=== PATIENT | female | born 1945 | race Caucasian/White ===

== ENCOUNTER 2022-03-07 21:06 | Inpatient (IN) ==
[2022-03-07] MEDS ORDERED: Isovue-370 500 ML BOTTLE IVP ONE (21:18)
[2022-03-07 21:50] LABS: Hematocrit 33.5 % (35.3-44.9); Hemoglobin 11.3 g/dL (11.5-15.4); Mean Corpuscular HGB Conc 33.7 g/dL (31.6-35.5); Mean Corpuscular Hemoglobin 31.7 pg (28.0-33.3); Mean Corpuscular Volume 94.1 fL (83.0-100.0); Mean Platelet Volume 8.5 fL (9.4-12.4); Platelet Count 371 K/mcL (140-400); Red Blood Count 3.56 M/mcL (3.82-4.97); White Blood Count 11.6 K/mcL (4.3-11.1)
[2022-03-07] MEDS ORDERED: *HR* LORazepam 2 MG/ML VIAL IVP ONE (21:52)
[2022-03-07 21:58] LABS: Prothrombin Time 11.1 Seconds (9.4-12.1)
[2022-03-07 22:00] LABS: Activated Partial Thrombo Time 28.3 Seconds (26.0-36.0)
[2022-03-07 22:15] LABS: BUN/Creatinine Ratio 19 (6-26); Blood Urea Nitrogen 30 mg/dL (8-23); Calcium 9.2 mg/dL (8.6-10.3); Carbon Dioxide 18 mEq/L (23-29); Chloride 105 mEq/L (98-107); Glucose 122 mg/dL (70-105); Osmolality,Calculated 287 (280-300); Potassium 4.8 mEq/L (3.5-5.1); Sodium 135 mEq/L (136-145); eGFR For African Americans 40 (> 60); eGFR For Non-African Americans 33 (> 60)
[2022-03-07 22:16] LABS: Troponin I < 0.03 ng/mL (< 0.04)
[2022-03-07 22:42] LABS: Bilirubin,Urine Negative (Negative); Blood,Urine Negative (Negative); Clarity,Urine Clear (Clear); Color,Urine Light-Yellow (Yellow); Glucose,Urine (UA) Normal (Normal); Ketones,Urine Negative (Negative); Leukocyte Esterase,Urine Negative (Negative); Nitrite,Urine Negative (Negative); PH,Urine 5.5 pH Units (5.0-8.0); Protein,Urine Trace mg/dL (Neg-Trace); Urobilinogen,Urine Normal (Normal)
[2022-03-07] MEDS ORDERED: Azithromycin 500 MG in 0.9 % Sodium Chloride 250 ML IVPB ONE (23:42)
[2022-03-07] MEDS ORDERED: cefTRIAXone 1,000 MG in 0.9 % Sodium Chloride Mini Bag 100 ML IVPB ONE (23:42)
[2022-03-08] MEDS ORDERED: Naloxone 0.4 MG/ML INJ IVP PRN (00:21)
[2022-03-08] MEDS ORDERED: Ondansetron ODT 4 MG TAB.RAPDIS SL PRN (00:21)
[2022-03-08] MEDS ORDERED: Melatonin 3 MG TABLET PO PRN (00:21)
[2022-03-08 01:16] LABS: Influenza A PCR Negative (Negative); Influenza B PCR Negative (Negative); Resp. Syncytial Virus PCR Negative (Negative)
[2022-03-08 01:20] LABS: SARS-CoV-2 by PCR (In House) Negative (Negative)
[2022-03-08] MEDS ORDERED: 0.9 % Sodium Chloride 1,000 ML IVC SCH ×2 (02:15→07:30)
[2022-03-08 03:22] LABS: Basophils # 0.1 K/mcL (0.0-0.2); Basophils % 0.5 %; Eosinophils # 0.4 K/mcL (0.0-0.6); Eosinophils % 4.2 %; Hematocrit 30.9 % (35.3-44.9); Hemoglobin 9.9 g/dL (11.5-15.4); Immature Granulocytes % 0.4 % (0-4); Lymphocytes # 2.3 K/mcL (0.6-4.6); Lymphocytes % 22.7 %; Mean Corpuscular Hemoglobin 30.4 pg (28.0-33.3); Mean Corpuscular Volume 94.8 fL (83.0-100.0); Mean Platelet Volume 8.6 fL (9.4-12.4); Monocytes # 0.5 K/mcL (0.0-1.3); Monocytes % 5.3 %; Neutrophils # 6.7 K/mcL (1.6-8.9); Platelet Count 332 K/mcL (140-400); Red Blood Count 3.26 M/mcL (3.82-4.97); Red Cell Distribution Width 13.1 % (11.5-14.5); Segmented Neutrophils % 66.9 %
[2022-03-08 03:45] LABS: Calcium 8.9 mg/dL (8.6-10.3)
[2022-03-08] MEDS: Levothyroxine 25 MCG TABLET PO SCH (06:18)
[2022-03-08] MEDS: Aspirin 81 MG TAB.CHEW PO SCH (08:39)
[2022-03-08 12:09] LABS: Sodium, Urine 71.3 mEq/L
[2022-03-08] MEDS ORDERED: *HR* LORazepam 2 MG/ML VIAL IVP ONE (12:20)
[2022-03-08] MEDS ORDERED: QUEtiapine Fumarate 25 MG TABLET PO PRN (18:13)
[2022-03-08] MEDS ORDERED: Acetaminophen 325 MG TABLET PO ONE (20:25)
[2022-03-09 02:53] LABS: Basophils # 0.1 K/mcL (0.0-0.2); Basophils % 0.8 %; Eosinophils # 0.2 K/mcL (0.0-0.6); Eosinophils % 2.8 %; Hematocrit 28.8 % (35.3-44.9); Hemoglobin 9.6 g/dL (11.5-15.4); Immature Granulocytes % 0.3 % (0-4); Lymphocytes % 22.6 %; Mean Corpuscular HGB Conc 33.3 g/dL (31.6-35.5); Mean Corpuscular Hemoglobin 31.4 pg (28.0-33.3); Mean Corpuscular Volume 94.1 fL (83.0-100.0); Mean Platelet Volume 8.8 fL (9.4-12.4); Monocytes # 0.5 K/mcL (0.0-1.3); Monocytes % 5.9 %; Neutrophils # 5.9 K/mcL (1.6-8.9); Platelet Count 295 K/mcL (140-400); Red Blood Count 3.06 M/mcL (3.82-4.97); Red Cell Distribution Width 13.2 % (11.5-14.5); Segmented Neutrophils % 67.6 %; White Blood Count 8.7 K/mcL (4.3-11.1)
[2022-03-09 03:05] LABS: Albumin 3.8 g/dL (3.5-5.7); Albumin/Globulin Ratio 1.4 (1.1-2.2); Bilirubin,Total 0.4 mg/dL (0.3-1.0); Calcium 8.5 mg/dL (8.6-10.3); Globulin 2.8 g/dL (2.4-3.5); Potassium 4.5 mEq/L (3.5-5.1); Total Protein 6.6 g/dL (6.4-8.9)
[2022-03-09] MEDS: Levothyroxine 25 MCG TABLET PO SCH (05:11)
[2022-03-09] MEDS: Aspirin 81 MG TAB.CHEW PO SCH (08:25)
[2022-03-09] MEDS: Melatonin 3 MG TABLET PO SCH (08:25)
[2022-03-09] MEDS: Cyanocobalamin (B-12) 1,000 MCG TABLET PO SCH (08:25)
[2022-03-09] MEDS: Famotidine 20 MG TABLET PO SCH (08:26)
[2022-03-09] MEDS: Loratadine 10 MG TABLET PO SCH (08:26)
[2022-03-09] MEDS ORDERED: *HR* LORazepam 2 MG/ML VIAL IVP ONE (10:01)
[2022-03-10] MEDS ORDERED: *HR* Enoxaparin 40 MG/0.4 ML SYRINGE SQ SCH (06:00)
[2022-03-10] MEDS: Levothyroxine 25 MCG TABLET PO SCH (06:30)
[2022-03-10 06:35] LABS: Basophils # 0.1 K/mcL (0.0-0.2); Basophils % 1.1 %; Eosinophils # 0.3 K/mcL (0.0-0.6); Eosinophils % 4.3 %; Hemoglobin 9.6 g/dL (11.5-15.4); Immature Granulocytes % 0.4 % (0-4); Lymphocytes # 2.3 K/mcL (0.6-4.6); Lymphocytes % 30.3 %; Mean Corpuscular HGB Conc 33.1 g/dL (31.6-35.5); Mean Corpuscular Hemoglobin 30.6 pg (28.0-33.3); Mean Corpuscular Volume 92.4 fL (83.0-100.0); Mean Platelet Volume 8.5 fL (9.4-12.4); Monocytes # 0.5 K/mcL (0.0-1.3); Monocytes % 6.3 %; Neutrophils # 4.4 K/mcL (1.6-8.9); Platelet Count 310 K/mcL (140-400); Red Blood Count 3.14 M/mcL (3.82-4.97); Segmented Neutrophils % 57.6 %; White Blood Count 7.6 K/mcL (4.3-11.1)
[2022-03-10 06:51] LABS: Albumin 3.9 g/dL (3.5-5.7); Albumin/Globulin Ratio 1.3 (1.1-2.2); Bilirubin,Total 0.4 mg/dL (0.3-1.0); Calcium 8.6 mg/dL (8.6-10.3); Globulin 2.9 g/dL (2.4-3.5); Magnesium 2.2 mg/dL (1.6-2.6); Phosphorous 3.2 mg/dL (2.7-4.5); Potassium 4.1 mEq/L (3.5-5.1); Total Protein 6.8 g/dL (6.4-8.9)
[2022-03-10 07:03] LABS: Thyroid Stimulating Hormone 2.406 mcIU/mL (0.340-5.600)
[2022-03-10] MEDS: Loratadine 10 MG TABLET PO SCH (09:19)
[2022-03-10] MEDS: Melatonin 3 MG TABLET PO SCH (09:20)
[2022-03-10] MEDS: Aspirin 81 MG TAB.CHEW PO SCH (09:20)
[2022-03-10] MEDS: Famotidine 20 MG TABLET PO SCH (09:20)
[2022-03-10] MEDS: Cyanocobalamin (B-12) 1,000 MCG TABLET PO SCH (09:20)
[2022-03-10 10:59] VITALS: BP 108/66; PULSE 89; TEMP 98.3; O2SAT 93
== END 2022-03-10 12:47 | disposition home health service (06) | DRG 69 ==
LOC: EMEROOARM 21:06 → 3ANU 21:06 → SUATTDRO 03-08 00:18 → 3ANU 03-08 01:01
PROVIDERS: ADMIT Internal Medicine; ATTEND Internal Medicine

== ENCOUNTER 2022-03-24 20:43 | Inpatient (IN) ==
[2022-03-24] MEDS ORDERED: 0.9 % Sodium Chloride 1,000 ML IVC ONE ×2 (20:50→22:35)
[2022-03-24 21:16] LABS: Basophils # 0.1 K/mcL (0.0-0.2); Basophils % 0.3 %; Eosinophils # 0.4 K/mcL (0.0-0.6); Eosinophils % 1.6 %; Hematocrit 20.3 % (35.3-44.9); Hemoglobin 6.4 g/dL (11.5-15.4); Immature Granulocytes % 1.6 % (0-4); Lymphocytes # 1.7 K/mcL (0.6-4.6); Lymphocytes % 6.6 %; Mean Corpuscular HGB Conc 31.5 g/dL (31.6-35.5); Mean Corpuscular Hemoglobin 29.9 pg (28.0-33.3); Mean Corpuscular Volume 94.9 fL (83.0-100.0); Monocytes # 1.1 K/mcL (0.0-1.3); Monocytes % 4.4 %; Nucleated Red Blood Cells 0.1 /100 WBC (0); Platelet Count 579 K/mcL (140-400); Red Blood Count 2.14 M/mcL (3.82-4.97); Red Cell Distribution Width 13.4 % (11.5-14.5); Segmented Neutrophils % 85.5 %; White Blood Count 25.7 K/mcL (4.3-11.1)
[2022-03-24 21:36] LABS: Alanine Aminotransferase 14 Units/L (7-52); Albumin 3.5 g/dL (3.5-5.7); Albumin/Globulin Ratio 1.2 (1.1-2.2); Alkaline Phosphatase 128 Units/L (34-104); Aspartate Amino Transferase 22 Units/L (13-39); BUN/Creatinine Ratio 19 (6-26); Bilirubin,Direct 0.1 mg/dL (0.0-0.2); Bilirubin,Indirect 0.1 mg/dL (0.0-1.0); Bilirubin,Total 0.2 mg/dL (0.3-1.0); Blood Urea Nitrogen 28 mg/dL (8-23); Calcium 8.3 mg/dL (8.6-10.3); Carbon Dioxide 21 mEq/L (23-29); Chloride 105 mEq/L (98-107); Creatine Kinase 58 Units/L (30-223); Ethanol < 10 mg/dL (Less than 10); Glucose 144 mg/dL (70-105); Osmolality,Calculated 290 (280-300); Potassium 4.8 mEq/L (3.5-5.1); Sodium 136 mEq/L (136-145); Total Protein 6.5 g/dL (6.4-8.9); Troponin I < 0.03 ng/mL (< 0.04); eGFR For African Americans 42 (> 60); eGFR For Non-African Americans 34 (> 60)
[2022-03-24 21:38] LABS: Platelet Estimate Increased (Normal)
[2022-03-24 21:39] LABS: Hypochromasia Present (Not Present)
[2022-03-24] MEDS ORDERED: cefTRIAXone 1,000 MG in Water for inj. (sterile) 10 ML IVP ONE (22:00)
[2022-03-24] MEDS ORDERED: Azithromycin 250 MG TABLET PO ONE (22:00)
[2022-03-24] MEDS ORDERED: Acetaminophen 325 MG TABLET PO ONE (22:04)
[2022-03-24 22:17] LABS: Bilirubin,Urine Negative (Negative); Blood,Urine Negative (Negative); Clarity,Urine Turbid (Clear); Color,Urine Yellow (Yellow); Glucose,Urine (UA) Normal (Normal); Ketones,Urine Trace mg/dL (Negative); Leukocyte Esterase,Urine Moderate (Negative); Mucus,Urine Few per lpf (None-Few); Nitrite,Urine Negative (Negative); Protein,Urine 30 mg/dL (Neg-Trace); Specific Gravity,Urine 1.024 (1.010-1.025); Squamous Epithelial Cell,Urine Moderate per hpf (None-Few); Transitional Epi Cells,Urine Few per hpf (None-Few); Urobilinogen,Urine Normal (Normal); WBC,Urine 15-30 per hpf (0-3)
[2022-03-24 22:23] LABS: Amphetamine Screen,Urine Negative ng/mL (Cutoff=1000); Barbiturate Screen,Urine Negative ng/mL (Cutoff=200); Benzodiazepines Screen,Urine Negative ng/mL (Cutoff=200); Cannabinoid Screen,Urine Negative ng/mL (Cutoff = 50); Cocaine Screen,Urine Negative ng/mL (Cutoff= 300); Opiate Screen,Urine Negative ng/mL (Cutoff=300); Phencyclidine Screen,Urine Negative ng/mL (Cutoff=25)
[2022-03-25 00:32] LABS: Influenza A PCR Negative (Negative); Influenza B PCR Negative (Negative); Resp. Syncytial Virus PCR Negative (Negative)
[2022-03-25 00:34] LABS: SARS-CoV-2 by PCR (In House) Negative (Negative)
[2022-03-25] MEDS ORDERED: Ondansetron 4 MG/2 ML VIAL IVP PRN (01:20)
[2022-03-25] MEDS ORDERED: Naloxone 0.4 MG/ML INJ IVP PRN (01:20)
[2022-03-25] MEDS ORDERED: 0.9 % Sodium Chloride 250 ML ONE (01:48)
[2022-03-25] MEDS ORDERED: Pantoprazole 40 MG VIAL IVP SCH (02:30)
[2022-03-25] MEDS: Pantoprazole 40 MG VIAL IVP SCH ×2 (05:08→14:44)
[2022-03-25] MEDS: 0.9 % Sodium Chloride 1,000 ML IVC SCH ×2 (05:09→12:53)
[2022-03-25 09:55] LABS: Basophils % 0.2 %; Eosinophils # 0.3 K/mcL (0.0-0.6); Eosinophils % 1.7 %; Hematocrit 23.2 % (35.3-44.9); Hemoglobin 7.5 g/dL (11.5-15.4); Immature Granulocytes % 1.5 % (0-4); Lymphocytes # 2.1 K/mcL (0.6-4.6); Lymphocytes % 12.8 %; Mean Corpuscular HGB Conc 32.3 g/dL (31.6-35.5); Mean Corpuscular Hemoglobin 30.1 pg (28.0-33.3); Mean Corpuscular Volume 93.2 fL (83.0-100.0); Monocytes # 0.7 K/mcL (0.0-1.3); Monocytes % 4.4 %; Neutrophils # 12.9 K/mcL (1.6-8.9); Platelet Count 504 K/mcL (140-400); Red Blood Count 2.49 M/mcL (3.82-4.97); Red Cell Distribution Width 14.4 % (11.5-14.5); Segmented Neutrophils % 79.4 %; White Blood Count 16.2 K/mcL (4.3-11.1)
[2022-03-25 10:00] LABS: INR 1.1; Prothrombin Time 12.6 Seconds (9.4-12.1)
[2022-03-25 10:09] LABS: Albumin 3.2 g/dL (3.5-5.7); Bilirubin,Total 0.3 mg/dL (0.3-1.0); Calcium 7.7 mg/dL (8.6-10.3); Globulin 3.1 g/dL (2.4-3.5); Magnesium 2.2 mg/dL (1.6-2.6); Phosphorous 3.1 mg/dL (2.7-4.5); Potassium 4.9 mEq/L (3.5-5.1); Total Protein 6.3 g/dL (6.4-8.9)
[2022-03-25 10:34] LABS: Folate 18.3 ng/mL (3.0-16.0)
[2022-03-25] MEDS: cefTRIAXone 2,000 MG in 0.9 % Sodium Chloride 20 ML IVP SCH (10:58)
[2022-03-25 11:03] LABS: Vitamin B12 > 1500 pg/mL (250-1100)
[2022-03-25] MEDS ORDERED: ALPRAZolam 0.5 MG TABLET PO PRN (15:32)
[2022-03-25] MEDS: *HR* Heparin 5,000 UNIT/ML VIAL SQ SCH (16:49)
[2022-03-25] MEDS ORDERED: cefTRIAXone 1,000 MG in 0.9 % Sodium Chloride 10 ML IVP ONE (21:00)
[2022-03-25] MEDS: Melatonin 3 MG TABLET PO SCH (21:18)
[2022-03-26 03:13] LABS: Hematocrit 23.6 % (35.3-44.9); Hemoglobin 7.4 g/dL (11.5-15.4); Mean Corpuscular HGB Conc 31.4 g/dL (31.6-35.5); Mean Corpuscular Hemoglobin 29.4 pg (28.0-33.3); Mean Corpuscular Volume 93.7 fL (83.0-100.0); Mean Platelet Volume 8.1 fL (9.4-12.4); Platelet Count 505 K/mcL (140-400); Red Blood Count 2.52 M/mcL (3.82-4.97); Red Cell Distribution Width 14.9 % (11.5-14.5); White Blood Count 13.9 K/mcL (4.3-11.1)
[2022-03-26 03:32] LABS: Calcium 7.6 mg/dL (8.6-10.3); Potassium 4.7 mEq/L (3.5-5.1)
[2022-03-26] MEDS: Pantoprazole 40 MG VIAL IVP SCH ×2 (03:42→13:57)
[2022-03-26] MEDS: Levothyroxine 25 MCG TABLET PO SCH (06:47)
[2022-03-26] MEDS: *HR* Heparin 5,000 UNIT/ML VIAL SQ SCH ×2 (06:47→17:36)
[2022-03-26] MEDS ORDERED: Iron Sucrose Complex 400 MG in 0.9 % Sodium Chloride 250 ML IVPB ONE (07:45)
[2022-03-26] MEDS: Aspirin Enteric Coated 325 MG Tablet PO SCH (08:54)
[2022-03-26] MEDS: Loratadine 10 MG TABLET PO SCH (08:55)
[2022-03-26] MEDS: Cyanocobalamin (B-12) 1,000 MCG TABLET PO SCH (08:55)
[2022-03-26] MEDS: cefTRIAXone 2,000 MG in 0.9 % Sodium Chloride 20 ML IVP SCH (08:55)
[2022-03-26] MEDS ORDERED: Famotidine 20 MG TABLET PO SCH (09:00)
[2022-03-26] MEDS: Melatonin 3 MG TABLET PO SCH (19:41)
[2022-03-27 02:28] LABS: Hematocrit 23.1 % (35.3-44.9); Hemoglobin 7.4 g/dL (11.5-15.4); Mean Corpuscular Hemoglobin 30.3 pg (28.0-33.3); Mean Corpuscular Volume 94.7 fL (83.0-100.0); Platelet Count 499 K/mcL (140-400); Red Blood Count 2.44 M/mcL (3.82-4.97); Red Cell Distribution Width 14.5 % (11.5-14.5); White Blood Count 14.7 K/mcL (4.3-11.1)
[2022-03-27 02:54] LABS: Calcium 7.3 mg/dL (8.6-10.3); Potassium 4.3 mEq/L (3.5-5.1)
[2022-03-27] MEDS: *HR* Heparin 5,000 UNIT/ML VIAL SQ SCH ×2 (05:22→19:00)
[2022-03-27] MEDS: Levothyroxine 25 MCG TABLET PO SCH (05:22)
[2022-03-27] MEDS: Aspirin Enteric Coated 325 MG Tablet PO SCH (07:37)
[2022-03-27] MEDS: Cefdinir 300 MG CAPSULE PO SCH ×2 (07:37→19:56)
[2022-03-27] MEDS: Famotidine 20 MG TABLET PO SCH (07:37)
[2022-03-27] MEDS: Cyanocobalamin (B-12) 1,000 MCG TABLET PO SCH (07:37)
[2022-03-27] MEDS: Loratadine 10 MG TABLET PO SCH (07:37)
[2022-03-27] MEDS: Melatonin 3 MG TABLET PO SCH (19:57)
[2022-03-28] MEDS: *HR* Heparin 5,000 UNIT/ML VIAL SQ SCH ×2 (05:48→17:28)
[2022-03-28] MEDS: Levothyroxine 25 MCG TABLET PO SCH (05:48)
[2022-03-28] MEDS: Cefdinir 300 MG CAPSULE PO SCH ×2 (07:59→19:55)
[2022-03-28] MEDS: Aspirin Enteric Coated 325 MG Tablet PO SCH (07:59)
[2022-03-28] MEDS: Cyanocobalamin (B-12) 1,000 MCG TABLET PO SCH (07:59)
[2022-03-28] MEDS: Famotidine 20 MG TABLET PO SCH (07:59)
[2022-03-28] MEDS: Loratadine 10 MG TABLET PO SCH (08:00)
[2022-03-28] MEDS: Melatonin 3 MG TABLET PO SCH (19:55)
[2022-03-29 04:28] VITALS: O2SAT 98
[2022-03-29] MEDS: Levothyroxine 25 MCG TABLET PO SCH (05:09)
[2022-03-29] MEDS: *HR* Heparin 5,000 UNIT/ML VIAL SQ SCH (05:10)
[2022-03-29] MEDS: Aspirin Enteric Coated 325 MG Tablet PO SCH (08:07)
[2022-03-29] MEDS: Cefdinir 300 MG CAPSULE PO SCH (08:07)
[2022-03-29] MEDS: Famotidine 20 MG TABLET PO SCH (08:08)
[2022-03-29] MEDS: Loratadine 10 MG TABLET PO SCH (08:08)
[2022-03-29] MEDS: Cyanocobalamin (B-12) 1,000 MCG TABLET PO SCH (08:08)
[2022-03-29 10:59] VITALS: BP 121/72; PULSE 85; TEMP 98.7
== END 2022-03-29 14:25 | disposition home or self-care (01) | DRG 871 ==
LOC: 2ANU 20:43 → EMEROOARM 20:43 → SUATTDRO 03-25 00:35 → 2ANU 03-25 01:10 → SUATTDRO 03-25 11:29
PROVIDERS: ADMIT Internal Medicine; ATTEND Internal Medicine